=== PATIENT | male | born 1985 | race Caucasian/White ===

== ENCOUNTER 2019-02-22 12:03 | Emergency (ER) | payer BC, OTHER ==
[~2019-02-22] VITALS: Ht 193 cm; Wt 77.1 kg
[2019-02-22 12:34] LABS: HEMATOCRIT 39.1 % (42.0-52.0); HEMOGLOBIN 13.5 gm/dL (14.0-18.0); MCH 33.9 pg (26.0-34.0); MCHC 34.4 g/dL (28.0-37.0); MCV 98.6 fL (80.0-100.0); PLATELET COUNT 202 thou/uL (150-400); RBC 3.97 mil/uL (4.50-6.00); RDW 13.2 % (10.5-14.5); WBC 3.3 thou/uL (4.0-11.0)
[2019-02-22 12:35] LABS: ANION GAP 12 mmol/L (7-16); BUN 10 mg/dL (7-18); CALCIUM 9.7 mg/dL (8.5-10.1); CHLORIDE 103 mmol/L (98-107); CO2 25 mmol/L (21-32); GLUCOSE 112 mg/dL (74-106); POTASSIUM 3.6 mmol/L (3.5-5.1); SODIUM 140 mmol/L (136-145)
[2019-02-22 12:45] LABS: ALBUMIN 4.1 g/dL (3.4-5.0); SGOT 45 U/L (15-37); SGPT 51 U/L (30-65); TOTAL BILIRUBIN 1.3 mg/dL (<0.1-1.0); TOTAL PROTEIN 7.7 g/dL (6.4-8.2); TROPONIN-I <0.06 ng/mL (<0.06)
[2019-02-22 13:19] LABS: ABSOLUTE NEUTROPHILS 2.2 thou/uL (1.4-8.2); PLATELET ESTIMATE NORMAL
[2019-02-22 13:40] LABS: URINE BILIRUBIN NEGATIVE (Negative); URINE BLOOD 1+ (Negative); URINE CLARITY CLEAR; URINE COLOR YELLOW; URINE GLUCOSE-RANDOM* NEGATIVE (Negative); URINE KETONES NEGATIVE (Negative); URINE LEUKOCYTES-REFLEX TRACE (Negative); URINE NITRITE-REFLEX NEGATIVE (Negative); URINE PROTEIN (DIPSTICK) NEGATIVE (Negative); URINE SPECIFIC GRAVITY 1.015 (1.005-1.035); URINE UROBILINOGEN 0.2 E.U./dl (0.2-1.0)
[2019-02-22 13:47] LABS: AMP/METHAMP Negative (Negative); BARBITURATES Negative (Negative); BENZODIAZEPINES Negative (Negative); COCAINE Negative (Negative); METHADONE Negative (Negative); OPIATES Negative (Negative); PCP Negative (Negative)
[2019-02-22 13:59] LABS: BACTERIA-REFLEX 1-9 Few /HPF (None Seen); CASTS None Seen /LPF (None Seen); CRYSTALS None Seen /LPF (None Seen); SQUAMOUS None Seen /LPF (0-3); URINE RBC 3-10 Few /HPF (0-2); URINE WBC-REFLEX 6-15 Few /HPF (0-5)
[2019-02-22 14:03] VITALS: BP 131/75
[2019-02-22] MEDS ORDERED: VITAMIN B-1100 M1 PO (14:03)
[2019-02-22] MEDS ORDERED: LIBRAX PO (14:14)
--- NOTE | 2019-02-23 09:39 | EKG ---
[place] [address] [facility] [place] [address] ELECTROCARDIOGRAM REPORT Name: LUTHER WALLACE Room #: DEP BEATRICE Inman#: [id number] Admission: 02/22/19 Attend Phys: Discharge: 02/22/19 Date of : 89 Report #: [id number] THIS REPORT FOR: //name// [facility] ED Test Date: 2019-02-22 Test Time: 12:17:41 Pat Name: LUTHER WALLACE Department: Room: Gender: M Scheduling Clerk: ABHINAV : 1985 Requested By: Adrienne Aragon Order Number: [id number] MD: Betito De Los Santos Measurements Intervals [place] Rate: 82 P: 62 VT: 140 QRS: 59 QRSD: 86 T: 57 QT: 381 QTc: 445 Interpretive Statements Sinus rhythm Normal tracing No previous ECG available for comparison Electronically Signed On 02-23-2019 9:39:18 ASSISTANT DESIGNER by Betito De Los Santos [email or web address] <ELECTRONICALLY SIGNED> By: Beitto De Los Santos MD, [facility] 02/23/19 0939 1217 1217 Betito De Los Santos MD, FACC /EPI
== END 2019-02-22 14:25 | disposition home or self-care (01) ==
LOC: ER 12:03
PROVIDERS: Nurse Practitioner Family
DX: R56.9 Unspecified convulsions (principal); R41.0 Disorientation, unspecified; F10.239 Alcohol dependence with withdrawal, unspecified; F17.210 Nicotine dependence, cigarettes, uncomplicated; Y90.0 Blood alcohol level of less than 20 mg/100 ml

== ENCOUNTER → 2019-03-01 | Outpatient (CLI) | payer BC, OTHER ==
[~2019-03-01] MED LIST: LIBRAX PO; VITAMIN B-1100 M1 PO
--- NOTE | ~2019-03-01 | EEG ---
[facility] [place] [address] ELECTROENCEPHALOGRAM Name: LUTHER WALLAEC Room #: [facility].#: [id number] Admission: 03/01/19 Attend Phys: Vimal Leahy MD Discharge: Date of : 89 Report #: [id number] THIS REPORT FOR: //name// CC: Vimal Leahy DATE OF SERVICE: 03/01/2019 This patient is being evaluated for seizure. EEG was done by placing the electrodes by standard 10-20 system of electrode placement. Both referential and sequential montages were used for recording. Background activity in this patient's EEG is about 10 Hz and 30 microvolt. This patient became drowsy and that is associated with bilateral slowing and vertex sharp waves. Photic stimulation was unremarkable. Throughout the record, no active epileptiform activity was noticed. IMPRESSION: This patient's EEG is within normal limits. Thank you very much for this referral. By: 1119 1204 Kodak Harper MD /nt
== END ==
LOC: NEURO 08:57
DX: R56.9 Unspecified convulsions (principal)